=== PATIENT | female | born 1970 | race African-American/Black ===

== ENCOUNTER 2019-03-28 12:55 | Inpatient (IN) | payer MEDICAID ==
[~2019-03-28] VITALS: Ht 157.5 cm; Wt 88.7 kg
[2019-03-28] MEDS ORDERED: METHYLPREDNISOLONE SOD SUCC 125 MG/2 ML VIAL IV STA (13:21)
[2019-03-28] MEDS ORDERED: MORPHINE SULFATE 4 MG/ML CPJ (NOT FOR IM USE) IV STA (13:21)
[2019-03-28] MEDS ORDERED: SODIUM CHLORIDE 0.9% 1,000 ML IV ONE (13:21)
[2019-03-28] MEDS ORDERED: ALBUTEROL (0.083%) 2.5MG/3ML NEB HHN STA (13:21)
[2019-03-28] MEDS ORDERED: ONDANSETRON HCL 4MG/2ML INJ IV STA (13:21)
[2019-03-28] MEDS ORDERED: IPRATROPIUM BROMIDE (0.02%) 0.5MG/2.5ML NEB HHN STA (13:21)
[2019-03-28 14:44] LABS: BASOPHILS % 1.1 % (0.0-2.0); EOSINOPHILS % 4.4 % (0.0-5.0); HEMATOCRIT. 34.3 % (36.0-48.0); HEMOGLOBIN. 11.2 g/dL (12.0-16.0); LYMPHOCYTES % 32.3 % (20.0-50.0); MEAN CORPUSCULAR VOLUME 76.8 fL (81.0-99.0); MEAN PLATELET VOLUME 7.9 fl (7.4-10.4); MONOCYTES % 12.8 % (2.0-8.0); NEUTROPHILS % 49.4 % (40.0-76.0); PLATELET 293 x1000/uL (130-400); RED BLOOD CELL COUNT 4.46 mill/uL (4.2-5.4)
[2019-03-28 14:49] LABS: CHLORIDE 108 mEq/L (98-107)
[2019-03-28 14:57] LABS: PARTIAL THROMBOPLASTIN TIME 26.6 sec (23.4-31.0); PROTHROMBIN TIME 10.6 sec (9.6-11.0)
[2019-03-28 14:59] LABS: HCG SCREEN NEGATIVE
[2019-03-28 16:04] LABS: CLARITY URINE CLEAR (CLEAR); COLOR URINE YELLOW (YELLOW); KETONES URINE NEGATIVE (NEGATIVE); LEUKOCYTE ESTERASE URINE NEGATIVE (NEGATIVE); NITRITE URINE NEGATIVE (NEGATIVE); OCCULT BLOOD URINE 1+ (NEGATIVE); PH URINE 5.5 (4.5-8.0); PROTEIN URINE NEGATIVE (NEGATIVE); SPECIFIC GRAVITY URINE 1.013 (1.005-1.030); UROBILINOGEN URINE 0.2 E.U./dL (0.2-1.0)
[2019-03-28] MEDS ORDERED: METRONIDAZOLE 500 MG PREMIX 100 ML IV ONE (16:30)
[2019-03-28] MEDS ORDERED: MORPHINE SULFATE 4 MG/ML CPJ (NOT FOR IM USE) IV ONE (16:30)
[2019-03-28] MEDS ORDERED: LEVOFLOXACIN 750MG PREMIX 150 ML IV ONE (16:30)
[2019-03-28] MEDS ORDERED: ASPIRIN 325MG EC TABLET PO ONE (16:45)
[2019-03-28] MEDS ORDERED: ACETAMINOPHEN 325MG TABLET PO PRN (18:30)
[2019-03-28] MEDS ORDERED: ONDANSETRON HCL 4MG/2ML INJ IV PRN (18:30)
[2019-03-28 21:22] VITALS: BP 130/64
[2019-03-28] MEDS ORDERED: POTASSIUM CHLORIDE 20MEQ TABLET SR PO NR (22:45)
[2019-03-28] MEDS: KETOROLAC 15MG/ML VIAL IV PRN (23:14)
[2019-03-28] MEDS: GUAIFENESIN-DM 200MG-20MG/10ML UDC PO PRN (23:19)
[2019-03-29 00:51] VITALS: BP 119/74
[2019-03-29] MEDS: IPRATROPIUM/ALBUTEROL 0.5-3(2.5)MG/3ML NEB HHN PRN ×2 (01:22→12:27)
[2019-03-29 04:00] VITALS: BP 130/69
[2019-03-29] MEDS: KETOROLAC 15MG/ML VIAL IV PRN ×2 (06:17→06:24)
[2019-03-29] MEDS: GUAIFENESIN-DM 200MG-20MG/10ML UDC PO PRN (06:26)
[2019-03-29 06:48] LABS: BASOPHILS % 0.4 % (0.0-2.0); HEMATOCRIT. 33.1 % (36.0-48.0); HEMOGLOBIN. 10.7 g/dL (12.0-16.0); LYMPHOCYTES % 14.6 % (20.0-50.0); MEAN CORPUSCULAR VOLUME 77.5 fL (81.0-99.0); MEAN PLATELET VOLUME 8.4 fl (7.4-10.4); MONOCYTES % 7.2 % (2.0-8.0); NEUTROPHILS % 77.8 % (40.0-76.0); PLATELET 293 x1000/uL (130-400); RED BLOOD CELL COUNT 4.27 mill/uL (4.2-5.4); RED CELL DISTRIBUTION WIDTH 18.2 % (11.6-14.6)
[2019-03-29 06:55] VITALS: BP 130/69
[2019-03-29] MEDS ORDERED: S350 PO (07:49)
[2019-03-29] MEDS ORDERED: HYDR12.529 PO (07:49)
[2019-03-29] MEDS ORDERED: ALBU4TAB6 PO (07:49)
[2019-03-29] MEDS ORDERED: AMLO10TA80 PO (07:49)
[2019-03-29] MEDS ORDERED: HYDR-4009 PO (07:49)
[2019-03-29] MEDS ORDERED: LISI10TA5 PO (07:49)
[2019-03-29 07:59] LABS: CHLORIDE 108 mEq/L (98-107)
[2019-03-29 08:00] VITALS: BP 145/74
[2019-03-29] MEDS: GUAIFENESIN 600MG ER TABLET PO SCH ×2 (08:59→22:28)
[2019-03-29] MEDS ORDERED: MORPHINE SULFATE 2 MG/ML CPJ (NOT FOR IM USE) IV PRN (10:15)
[2019-03-29] MEDS ORDERED: HYDROCODONE/ACETAMINOPHEN 10/325MG TABLET PO PRN (10:15)
[2019-03-29] MEDS: HYDROCHLOROTHIAZIDE 12.5MG CAPSULE PO SCH (10:53)
[2019-03-29] MEDS: ASPIRIN 81MG TABLET PO SCH (10:54)
[2019-03-29] MEDS ORDERED: LISINOPRIL 5MG TABLET PO SCH (11:00)
[2019-03-29] MEDS ORDERED: AMLODIPINE 2.5MG TABLET PO SCH (11:00)
[2019-03-29] MEDS: METRONIDAZOLE 500 MG PREMIX 100 ML IV SCH ×2 (11:06→18:05)
[2019-03-29] MEDS: CARISOPRODOL 350 MG TABLET PO PRN ×2 (11:06→22:58)
[2019-03-29 12:00] VITALS: BP 174/81
[2019-03-29] MEDS ORDERED: HYDROMORPHONE HCL/PF 2MG/ML CPJ IV NR (13:00)
[2019-03-29] MEDS ORDERED: CLONIDINE 0.2MG TABLET PO PRN (13:30)
[2019-03-29] MEDS: CLONIDINE 0.1MG TABLET PO PRN (13:37)
[2019-03-29 16:00] VITALS: BP 155/84
[2019-03-29] MEDS: LEVOFLOXACIN 500MG PREMIX 100 ML IV SCH (16:28)
[2019-03-29] MEDS: HYDROMORPHONE HCL/PF 2MG/ML CPJ IV PRN (20:36)
[2019-03-29 22:31] LABS: TOTAL IRON BINDING CAPACITY 419 ug/dL (250-450)
[2019-03-29 22:49] LABS: FOLIC ACID (FOLATE) SERUM 4.8 ng/mL (>5.38)
[2019-03-30] VITALS: BP 146/121
[2019-03-30] MEDS: HYDROMORPHONE HCL/PF 2MG/ML CPJ IV PRN ×5 (00:57→22:21)
[2019-03-30] MEDS: METRONIDAZOLE 500 MG PREMIX 100 ML IV SCH ×3 (02:32→17:44)
[2019-03-30 03:20] LABS: CHLORIDE 106 mEq/L (98-107)
[2019-03-30 03:24] LABS: PARTIAL THROMBOPLASTIN TIME 25.7 sec (23.4-31.0); PROTHROMBIN TIME 10.1 sec (9.6-11.0)
[2019-03-30 03:34] LABS: BASOPHILS % 0.8 % (0.0-2.0); EOSINOPHILS % 3.3 % (0.0-5.0); HEMATOCRIT. 35.2 % (36.0-48.0); HEMOGLOBIN. 11.4 g/dL (12.0-16.0); LYMPHOCYTES % 28.4 % (20.0-50.0); MEAN CORPUSCULAR HEMOGLOBIN 24.9 pg (28.0-32.0); MEAN CORPUSCULAR VOLUME 77.3 fL (81.0-99.0); MEAN PLATELET VOLUME 8.4 fl (7.4-10.4); MONOCYTES % 9.3 % (2.0-8.0); NEUTROPHILS % 58.2 % (40.0-76.0); PLATELET 291 x1000/uL (130-400); RED BLOOD CELL COUNT 4.55 mill/uL (4.2-5.4); RED CELL DISTRIBUTION WIDTH 17.9 % (11.6-14.6)
[2019-03-30 04:00] VITALS: BP 136/86
[2019-03-30 08:00] VITALS: BP 154/76
[2019-03-30] MEDS: GUAIFENESIN 600MG ER TABLET PO SCH ×2 (08:31→21:09)
[2019-03-30] MEDS: ASPIRIN 81MG TABLET PO SCH (08:31)
[2019-03-30] MEDS: HYDROCHLOROTHIAZIDE 12.5MG CAPSULE PO SCH (08:31)
[2019-03-30] MEDS: AMLODIPINE 10MG TABLET PO SCH (08:31)
[2019-03-30] MEDS: LISINOPRIL 40MG TABLET PO SCH (08:32)
[2019-03-30] MEDS ORDERED: SIMETHICONE 40 MG/0.6 ML 30ML ONE (10:15)
[2019-03-30 12:00] VITALS: BP 142/84
[2019-03-30] MEDS ORDERED: BACTERIOSTATIC SODIUM CHLORIDE 0.9% 30ML VIAL IJ ONE (13:53)
[2019-03-30] MEDS: OMEPRAZOLE 20MG CAPSULE EXTENDED RELEASE PO SCH ×2 (15:23→21:09)
[2019-03-30] MEDS: LEVOFLOXACIN 500MG PREMIX 100 ML IV SCH ×2 (15:25→16:20)
[2019-03-30 16:00] VITALS: BP 159/90
[2019-03-30 20:00] VITALS: BP 115/78
[2019-03-30] MEDS: CARISOPRODOL 350 MG TABLET PO PRN (21:15)
[2019-03-31] VITALS: BP 159/86
[2019-03-31] MEDS: IPRATROPIUM/ALBUTEROL 0.5-3(2.5)MG/3ML NEB HHN PRN ×2 (00:10→09:47)
[2019-03-31] MEDS: METRONIDAZOLE 500 MG PREMIX 100 ML IV SCH ×3 (01:36→18:00)
[2019-03-31] MEDS: HYDROMORPHONE HCL/PF 2MG/ML CPJ IV PRN ×3 (02:50→11:27)
[2019-03-31 06:08] LABS: BASOPHILS % 1.5 % (0.0-2.0); HEMATOCRIT. 33.8 % (36.0-48.0); HEMOGLOBIN. 11.1 g/dL (12.0-16.0); LYMPHOCYTES % 41.8 % (20.0-50.0); MEAN CORPUSCULAR HEMOGLOBIN 25.2 pg (28.0-32.0); MEAN CORPUSCULAR VOLUME 77.1 fL (81.0-99.0); MEAN PLATELET VOLUME 8.5 fl (7.4-10.4); MONOCYTES % 10.8 % (2.0-8.0); NEUTROPHILS % 41.9 % (40.0-76.0); PLATELET 302 x1000/uL (130-400); RED BLOOD CELL COUNT 4.38 mill/uL (4.2-5.4); RED CELL DISTRIBUTION WIDTH 17.7 % (11.6-14.6)
[2019-03-31 06:23] LABS: CHLORIDE 104 mEq/L (98-107)
[2019-03-31 06:42] VITALS: BP 175/96
[2019-03-31] MEDS: CLONIDINE 0.1MG TABLET PO PRN (06:57)
[2019-03-31 08:00] VITALS: BP 177/99
[2019-03-31] MEDS: ASPIRIN 81MG TABLET PO SCH (09:24)
[2019-03-31] MEDS: LISINOPRIL 40MG TABLET PO SCH (09:24)
[2019-03-31] MEDS: HYDROCHLOROTHIAZIDE 12.5MG CAPSULE PO SCH (09:25)
[2019-03-31] MEDS: AMLODIPINE 10MG TABLET PO SCH (09:25)
[2019-03-31] MEDS: GUAIFENESIN 600MG ER TABLET PO SCH (09:25)
[2019-03-31] MEDS: CARISOPRODOL 350 MG TABLET PO PRN (09:38)
[2019-03-31] MEDS: OMEPRAZOLE 20MG CAPSULE EXTENDED RELEASE PO SCH (09:57)
[2019-03-31] MEDS: GUAIFENESIN-DM 200MG-20MG/10ML UDC PO PRN (10:34)
[2019-03-31 11:24] VITALS: BP 119/72
[2019-03-31 16:00] VITALS: BP 127/66
[2019-03-31] MEDS: LEVOFLOXACIN 500MG PREMIX 100 ML IV SCH ×2 (17:33→18:33)
[2019-03-31 19:42] VITALS: BP 127/66
== END 2019-03-31 19:50 | disposition home or self-care (01) | DRG 244 ==
LOC: ER 12:55 → EDBEDREQ 15:14 → 7WST 17:53 → EDBEDREQ 18:01 → ENRESERV 19:19
PROVIDERS: ADMIT Internal Medicine; ATTEND Internal Medicine
PROC: 0DB68ZX Excision of Stomach, Via Natural or Artificial Opening Endoscopic, Diagnostic (ICD-10-PCS; principal; 2019-03-30)
DX: K57.32 Diverticulitis of large intestine without perforation or abscess without bleeding (principal); E44.1 Mild protein-calorie malnutrition; E87.8 Other disorders of electrolyte and fluid balance, not elsewhere classified; R13.10 Dysphagia, unspecified; M48.02 Spinal stenosis, cervical region; K29.60 Other gastritis without bleeding; J06.9 Acute upper respiratory infection, unspecified; I10 Essential (primary) hypertension; E87.6 Hypokalemia; D50.9 Iron deficiency anemia, unspecified; E66.9 Obesity, unspecified; M47.812 Spondylosis without myelopathy or radiculopathy, cervical region; J45.909 Unspecified asthma, uncomplicated; Z76.5 Malingerer [conscious simulation]; Z90.49 Acquired absence of other specified parts of digestive tract; Z68.35 Body mass index [BMI] 35.0-35.9, adult; Z71.3 Dietary counseling and surveillance
CPT/HCPCS: 36415; 71045; 72141; 74176; 80048; 82607; 82728; 82746; 83540; 83550; 83880; 84484; 84703; 88305; 88312; 88313; 93005; 94640; 94644; 97166; 99285; C1893; J1170; J1885; J1956; J2270; J2405; J2930; J3490; J7030; J7040; J7611; J7620

== ENCOUNTER 2019-10-08 06:25 | Inpatient (IN) | payer MEDICAID ==
[~2019-10-08] VITALS: Ht 157.5 cm; Wt 81.6 kg
[~2019-10-08 06:25] MED LIST: ALBU4TAB6 PO; AMLO10TA80 PO; CARI350T28 PO; HYDR-4009 PO; HYDR12.529 PO; LISI10TA5 PO
[2019-10-08] MEDS ORDERED: MORPHINE SULFATE 4 MG/ML CPJ (NOT FOR IM USE) IV STA (06:50)
[2019-10-08] MEDS ORDERED: ONDANSETRON HCL 4MG/2ML INJ IV STA (06:50)
[2019-10-08 07:44] LABS: CHLORIDE 108 mEq/L (98-107); PROTHROMBIN TIME 10.4 sec (9.6-11.0)
[2019-10-08 07:46] LABS: BASOPHILS % 0.6 % (0.0-2.0); EOSINOPHILS % 0.8 % (0.0-5.0); HEMOGLOBIN. 10.5 g/dL (12.0-16.0); LYMPHOCYTES % 24.6 % (20.0-50.0); MEAN CORPUSCULAR HEMOGLOBIN 22.9 pg (28.0-32.0); MEAN CORPUSCULAR VOLUME 69.6 fL (81.0-99.0); MONOCYTES % 3.9 % (2.0-8.0); NEUTROPHILS % 70.1 % (40.0-76.0); PLATELET 314 x1000/uL (130-400); RED CELL DISTRIBUTION WIDTH 19.2 % (11.6-14.6)
[2019-10-08 07:55] LABS: HCG SCREEN NEGATIVE
[2019-10-08 08:52] LABS: PLATELET ESTIMATE NORMAL
[2019-10-08] MEDS ORDERED: MORPHINE SULFATE 4 MG/ML CPJ (NOT FOR IM USE) IV ONE ×2 (09:45→12:30)
[2019-10-08 10:15] LABS: CLARITY URINE CLOUDY (CLEAR); COLOR URINE YELLOW (YELLOW); KETONES URINE NEGATIVE (NEGATIVE); LEUKOCYTE ESTERASE URINE 1+ (NEGATIVE); NITRITE URINE NEGATIVE (NEGATIVE); OCCULT BLOOD URINE NEGATIVE (NEGATIVE); PH URINE 7.5 (4.5-8.0); PROTEIN URINE NEGATIVE (NEGATIVE); SPECIFIC GRAVITY URINE 1.013 (1.005-1.030)
[2019-10-08] MEDS ORDERED: METRONIDAZOLE 500 MG PREMIX 100 ML IV ONE (10:30)
[2019-10-08] MEDS ORDERED: LEVOFLOXACIN 750MG PREMIX 150 ML IV ONE (10:30)
[2019-10-08] MEDS ORDERED: DIPHENHYDRAMINE 50MG/ML VIAL IV ONE (12:30)
[2019-10-08] MEDS ORDERED: ACETAMINOPHEN 325MG TABLET PO PRN (14:15)
[2019-10-08] MEDS ORDERED: ONDANSETRON HCL 4MG/2ML INJ IV PRN (14:15)
[2019-10-08] MEDS ORDERED: KETOROLAC 30MG/ML VIAL IV PRN (16:39)
[2019-10-08] MEDS ORDERED: LOSARTAN POTASSIUM 50 MG TABLET PO NR (17:30)
[2019-10-08] MEDS: OMEPRAZOLE 20MG CAPSULE EXTENDED RELEASE PO SCH (18:11)
[2019-10-08] MEDS ORDERED: METRONIDAZOLE 500 MG PREMIX 100 ML IV NR (18:30)
[2019-10-08] MEDS: MORPHINE SULFATE 2 MG/ML CPJ (NOT FOR IM USE) IV PRN (21:16)
[2019-10-08 22:35] VITALS: BP 164/87
[2019-10-09] MEDS: METRONIDAZOLE 500 MG PREMIX 100 ML IV SCH ×3 (01:22→22:14)
[2019-10-09] MEDS: MORPHINE SULFATE 2 MG/ML CPJ (NOT FOR IM USE) IV PRN ×3 (01:23→11:05)
[2019-10-09] MEDS: OMEPRAZOLE 20MG CAPSULE EXTENDED RELEASE PO SCH (06:42)
[2019-10-09 07:35] LABS: HEMATOCRIT. 30.7 % (36.0-48.0); HEMOGLOBIN. 9.9 g/dL (12.0-16.0); MEAN CORPUSCULAR HEMOGLOBIN 22.5 pg (28.0-32.0); MEAN CORPUSCULAR VOLUME 69.6 fL (81.0-99.0); MEAN PLATELET VOLUME 8.2 fl (7.4-10.4); PLATELET 267 x1000/uL (130-400); RED BLOOD CELL COUNT 4.41 mill/uL (4.2-5.4); RED CELL DISTRIBUTION WIDTH 18.5 % (11.6-14.6)
[2019-10-09 08:00] VITALS: BP 137/73
[2019-10-09 08:01] LABS: CHLORIDE 107 mEq/L (98-107)
[2019-10-09 08:04] LABS: FOLIC ACID (FOLATE) SERUM 4.7 ng/mL (>5.38)
[2019-10-09 08:09] LABS: TOTAL IRON BINDING CAPACITY 431 ug/dL (250-450)
[2019-10-09] MEDS ORDERED: LOSARTAN POTASSIUM 50 MG TABLET PO SCH ×2 (09:00→13:30)
[2019-10-09] MEDS: FERROUS SULFATE 325MG TABLET PO SCH ×3 (09:20→18:23)
[2019-10-09 12:00] VITALS: BP_SYST 151; BP_SYST 158; BP_DIAS 87; BP_DIAS 96
[2019-10-09 13:14] LABS: PLATELET ESTIMATE NORMAL
[2019-10-09] MEDS ORDERED: LEVOFLOXACIN 500MG PREMIX 100 ML IV SCH (14:00)
[2019-10-09] MEDS ORDERED: FLUCONAZOLE 150MG TABLET PO NR (14:00)
[2019-10-09] MEDS: HYDROMORPHONE HCL/PF 2MG/ML CPJ IV PRN ×2 (15:35→22:04)
[2019-10-09] MEDS: DIPHENHYDRAMINE 25MG CAPSULE PO PRN ×2 (15:35→22:03)
[2019-10-09 16:00] VITALS: BP 142/76
[2019-10-09 20:00] VITALS: BP 128/71
[2019-10-09] MEDS: LOSARTAN POTASSIUM 50 MG TABLET PO SCH (21:00)
[2019-10-09] MEDS ORDERED: DOCUSATE SODIUM 250MG CAPSULE PO PRN (23:00)
[2019-10-10] VITALS: BP 157/79
[2019-10-10 04:00] VITALS: BP 140/79
[2019-10-10] MEDS: METRONIDAZOLE 500 MG PREMIX 100 ML IV SCH ×3 (05:21→22:58)
[2019-10-10] MEDS: DIPHENHYDRAMINE 25MG CAPSULE PO PRN ×2 (05:21→12:32)
[2019-10-10] MEDS: HYDROMORPHONE HCL/PF 2MG/ML CPJ IV PRN (05:47)
[2019-10-10 07:14] LABS: HEMATOCRIT. 30.6 % (36.0-48.0); HEMOGLOBIN. 9.9 g/dL (12.0-16.0); MEAN CORPUSCULAR HEMOGLOBIN 22.5 pg (28.0-32.0); MEAN CORPUSCULAR VOLUME 69.7 fL (81.0-99.0); MEAN PLATELET VOLUME 8.9 fl (7.4-10.4); PLATELET 284 x1000/uL (130-400); RED BLOOD CELL COUNT 4.38 mill/uL (4.2-5.4); RED CELL DISTRIBUTION WIDTH 19.1 % (11.6-14.6)
[2019-10-10] MEDS: OMEPRAZOLE 20MG CAPSULE EXTENDED RELEASE PO SCH (07:20)
[2019-10-10 07:32] LABS: CHLORIDE 107 mEq/L (98-107)
[2019-10-10 08:00] VITALS: BP 137/78
[2019-10-10] MEDS: LOSARTAN POTASSIUM 50 MG TABLET PO SCH ×2 (09:33→22:58)
[2019-10-10] MEDS: FERROUS SULFATE 325MG TABLET PO SCH ×2 (09:33→12:32)
[2019-10-10 09:35] LABS: ATYPICAL LYMPHOCYTES 1; PLATELET ESTIMATE NORMAL
[2019-10-10 12:00] VITALS: BP 187/109
[2019-10-10] MEDS: HYDROCODONE/ACETAMINOPHEN 5/325MG TABLET PO PRN (14:33)
[2019-10-10 16:00] VITALS: BP 144/78
[2019-10-10] MEDS: HYDROMORPHONE HCL/PF 2MG/ML CPJ IM PRN ×2 (17:22→23:24)
[2019-10-10] MEDS: LEVOFLOXACIN 500MG PREMIX 100 ML IV SCH (17:23)
[2019-10-10 20:00] VITALS: BP 173/96
[2019-10-11] VITALS: BP 145/79
[2019-10-11 04:00] VITALS: BP 151/76
[2019-10-11] MEDS: ALBUTEROL (0.083%) 2.5MG/3ML NEB HHN SCH ×4 (04:38→17:25)
[2019-10-11] MEDS: OMEPRAZOLE 20MG CAPSULE EXTENDED RELEASE PO SCH (05:47)
[2019-10-11] MEDS: METRONIDAZOLE 500 MG PREMIX 100 ML IV SCH ×2 (05:47→13:30)
[2019-10-11] MEDS: HYDROMORPHONE HCL/PF 2MG/ML CPJ IM PRN (05:48)
[2019-10-11 06:51] LABS: HEMATOCRIT. 34.2 % (36.0-48.0); HEMOGLOBIN. 10.6 g/dL (12.0-16.0); MEAN CORPUSCULAR HEMOGLOBIN 22.1 pg (28.0-32.0); MEAN CORPUSCULAR VOLUME 70.9 fL (81.0-99.0); MEAN PLATELET VOLUME 8.9 fl (7.4-10.4); PLATELET 304 x1000/uL (130-400); RED BLOOD CELL COUNT 4.83 mill/uL (4.2-5.4); RED CELL DISTRIBUTION WIDTH 18.7 % (11.6-14.6)
[2019-10-11 07:10] LABS: CHLORIDE 106 mEq/L (98-107)
[2019-10-11 08:00] VITALS: BP 126/72
[2019-10-11] MEDS ORDERED: AMLODIPINE 5MG TABLET PO SCH (09:00)
[2019-10-11] MEDS: LOSARTAN POTASSIUM 50 MG TABLET PO SCH (09:11)
[2019-10-11] MEDS: FERROUS SULFATE 325MG TABLET PO SCH ×3 (09:11→18:40)
[2019-10-11] MEDS ORDERED: FOLIC ACID 1MG TABLET PO SCH (09:15)
[2019-10-11 09:40] LABS: PLATELET ESTIMATE NORMAL
[2019-10-11] MEDS ORDERED: DOCU250C14 MT (10:03)
[2019-10-11] MEDS ORDERED: FERR325T6 MT (10:03)
[2019-10-11] MEDS ORDERED: FOLI-43 MT (10:03)
[2019-10-11] MEDS: HYDROCODONE/ACETAMINOPHEN 5/325MG TABLET PO PRN ×2 (11:04→16:13)
[2019-10-11] MEDS: LEVOFLOXACIN 500MG PREMIX 100 ML IV SCH (11:19)
[2019-10-11 12:00] VITALS: BP 146/79
[2019-10-11] MEDS ORDERED: SORBITOL 70% SOLN 30ML PO SCH (14:00)
[2019-10-11] MEDS ORDERED: NA PHOS,M-B/NA PHOS,DI-BA ENEMA 118ML PR SCH (14:00)
[2019-10-11 16:00] VITALS: BP 154/84
[2019-10-11 19:00] VITALS: BP 154/84
[2019-10-12] MEDS ORDERED: METRONIDAZOLE 500MG TABLET PO SCH (06:00)
[2019-10-12] MEDS ORDERED: LEVOFLOXACIN 500MG TABLET PO SCH (11:00)
== END 2019-10-11 19:10 | disposition home or self-care (01) | DRG 720 ==
LOC: ER 06:25 → 6EST 12:43 → EDBEDREQSVC 17:56 → ENRESERV 18:01 → EDBEDREQ 18:41
PROVIDERS: ADMIT Internal Medicine; ATTEND Internal Medicine
DX: A41.9 Sepsis, unspecified organism (principal); E87.8 Other disorders of electrolyte and fluid balance, not elsewhere classified; E44.1 Mild protein-calorie malnutrition; K57.32 Diverticulitis of large intestine without perforation or abscess without bleeding; K83.8 Other specified diseases of biliary tract; D25.9 Leiomyoma of uterus, unspecified; D50.9 Iron deficiency anemia, unspecified; E66.9 Obesity, unspecified; I10 Essential (primary) hypertension; J45.909 Unspecified asthma, uncomplicated; N39.0 Urinary tract infection, site not specified; Z76.5 Malingerer [conscious simulation]; Z90.49 Acquired absence of other specified parts of digestive tract; Z79.899 Other long term (current) drug therapy; Z68.32 Body mass index [BMI] 32.0-32.9, adult
CPT/HCPCS: 36415; 74176; 80048; 80053; 81003; 82607; 82728; 82746; 83540; 83550; 84703; 85025; 94640; 96365; 99285; C1893; J1170; J1200; J1956; J2270; J2405; J3490; J7040; J7611; Q0163

== ENCOUNTER 2020-05-06 09:49 | Inpatient (IN) | payer MEDICAID ==
[~2020-05-06] VITALS: Ht 167.6 cm; Wt 89.8 kg
[~2020-05-06 09:49] MED LIST changes: +DOCU250C14 MT; +FERR325T6 MT; +FOLI-43 MT
[2020-05-06] MEDS ORDERED: ONDANSETRON HCL 4MG/2ML INJ IV STA ×2 (10:07→12:29)
[2020-05-06] MEDS ORDERED: SODIUM CHLORIDE 0.9% 1,000 ML IV ONE (10:07)
[2020-05-06] MEDS ORDERED: KETOROLAC 30MG/ML VIAL IV STA (10:07)
[2020-05-06 10:35] LABS: BASOPHILS % 1.3 % (0.0-2.0); EOSINOPHILS % 2.7 % (0.0-5.0); HEMOGLOBIN. 11.8 g/dL (12.0-16.0); LYMPHOCYTES % 36.5 % (20.0-50.0); MEAN CORPUSCULAR HEMOGLOBIN 24.4 pg (28.0-32.0); MEAN CORPUSCULAR VOLUME 74.5 fL (81.0-99.0); MONOCYTES % 12.3 % (2.0-8.0); NEUTROPHILS % 47.2 % (40.0-76.0); PLATELET 308 x1000/uL (130-400); RED BLOOD CELL COUNT 4.83 mill/uL (4.2-5.4)
[2020-05-06 10:37] LABS: CHLORIDE 105 mEq/L (98-107)
[2020-05-06 10:41] LABS: PROTHROMBIN TIME 10.5 sec (9.6-11.0)
[2020-05-06 10:44] LABS: CLARITY URINE CLEAR (CLEAR); COLOR URINE YELLOW (YELLOW); KETONES URINE NEGATIVE (NEGATIVE); LEUKOCYTE ESTERASE URINE NEGATIVE (NEGATIVE); NITRITE URINE NEGATIVE (NEGATIVE); OCCULT BLOOD URINE NEGATIVE (NEGATIVE); PROTEIN URINE NEGATIVE (NEGATIVE); SPECIFIC GRAVITY URINE 1.015 (1.005-1.030)
[2020-05-06] MEDS ORDERED: MORPHINE SULFATE 4 MG/ML CPJ (NOT FOR IM USE) IV STA (12:29)
[2020-05-06] MEDS ORDERED: CEFTRIAXONE 1 G PREMIX 50 ML IV ONE (12:30)
[2020-05-06] MEDS ORDERED: METRONIDAZOLE 500 MG PREMIX 100 ML IV ONE (12:30)
[2020-05-06] MEDS ORDERED: ACETAMINOPHEN 325MG TABLET PO PRN (15:15)
[2020-05-06] MEDS ORDERED: DIPHENHYDRAMINE 50MG/ML VIAL IV PRN (15:15)
[2020-05-06] MEDS ORDERED: CLONIDINE 0.1MG TABLET PO PRN (15:15)
[2020-05-06] MEDS: SODIUM CHLORIDE 0.9% 1,000 ML IV SCH (15:40)
[2020-05-06] MEDS: MORPHINE SULFATE 2 MG/ML CPJ (NOT FOR IM USE) IV PRN ×2 (16:45→20:48)
[2020-05-06] MEDS: ONDANSETRON HCL 4MG/2ML INJ IV PRN ×2 (20:41→20:48)
[2020-05-06] MEDS ORDERED: METRONIDAZOLE 500 MG PREMIX 100 ML IV SCH (21:00)
[2020-05-06 21:30] VITALS: BP 148/74
[2020-05-07] VITALS (8 sets, daily range): BP systolic 105–179; BP diastolic 58–94
[2020-05-07] MEDS: SODIUM CHLORIDE 0.9% 1,000 ML IV SCH ×2 (01:50→13:16)
[2020-05-07] MEDS: MORPHINE SULFATE 2 MG/ML CPJ (NOT FOR IM USE) IV PRN ×2 (01:51→05:58)
[2020-05-07] MEDS: METRONIDAZOLE 500 MG PREMIX 100 ML IV SCH ×3 (05:45→21:15)
[2020-05-07 07:06] LABS: BASOPHILS % 1.3 % (0.0-2.0); CHLORIDE 107 mEq/L (98-107); EOSINOPHILS % 5.2 % (0.0-5.0); HEMATOCRIT. 33.1 % (36.0-48.0); HEMOGLOBIN. 10.7 g/dL (12.0-16.0); LYMPHOCYTES % 52.7 % (20.0-50.0); MEAN CORPUSCULAR HEMOGLOBIN 24.2 pg (28.0-32.0); MEAN CORPUSCULAR VOLUME 74.9 fL (81.0-99.0); MEAN PLATELET VOLUME 8.1 fl (7.4-10.4); MONOCYTES % 12.5 % (2.0-8.0); NEUTROPHILS % 28.3 % (40.0-76.0); PLATELET 267 x1000/uL (130-400); RED BLOOD CELL COUNT 4.41 mill/uL (4.2-5.4); RED CELL DISTRIBUTION WIDTH 19.7 % (11.6-14.6)
[2020-05-07 07:17] LABS: HDL CHOLESTEROL 60 mg/dL (40-59)
[2020-05-07 07:20] LABS: LDL CHOLESTEROL 52 mg/dL (5-100)
[2020-05-07] MEDS: HYDROMORPHONE HCL/PF 2MG/ML CPJ IV PRN ×3 (09:47→23:31)
[2020-05-07] MEDS: LISINOPRIL 10MG TABLET PO SCH (12:46)
[2020-05-07] MEDS: FOLIC ACID 1MG TABLET PO SCH (12:46)
[2020-05-07] MEDS: HYDROCHLOROTHIAZIDE 12.5MG CAPSULE PO SCH (12:46)
[2020-05-07] MEDS: CEFTRIAXONE 1,000 MG in DEXTROSE 5% WATER 50 ML IV SCH (12:46)
[2020-05-07] MEDS: AMLODIPINE 10MG TABLET PO SCH (12:46)
[2020-05-07] MEDS ORDERED: CEFTRIAXONE 1,000 MG in DEXTROSE 5% WATER 50 ML IV SCH (13:00)
[2020-05-07] MEDS: ONDANSETRON HCL 4MG/2ML INJ IV PRN (23:41)
[2020-05-08] VITALS: BP 125/72
[2020-05-08 04:00] VITALS: BP 111/64
[2020-05-08] MEDS: METRONIDAZOLE 500 MG PREMIX 100 ML IV SCH ×3 (05:16→21:21)
[2020-05-08 08:00] VITALS: BP 134/87
[2020-05-08] MEDS: HYDROCHLOROTHIAZIDE 12.5MG CAPSULE PO SCH (08:57)
[2020-05-08] MEDS: FOLIC ACID 1MG TABLET PO SCH (08:58)
[2020-05-08] MEDS: AMLODIPINE 10MG TABLET PO SCH (08:58)
[2020-05-08] MEDS: LISINOPRIL 10MG TABLET PO SCH (08:58)
[2020-05-08] MEDS: HYDROMORPHONE HCL/PF 2MG/ML CPJ IV PRN ×3 (08:59→21:51)
[2020-05-08 12:00] VITALS: BP 160/58
[2020-05-08] MEDS: SODIUM CHLORIDE 0.9% 1,000 ML IV SCH (12:15)
[2020-05-08] MEDS: CEFTRIAXONE 1,000 MG in DEXTROSE 5% WATER 50 ML IV SCH (13:04)
[2020-05-08 16:00] VITALS: BP 117/66
[2020-05-08 20:00] VITALS: BP 128/78
[2020-05-09] VITALS: BP 116/59
[2020-05-09] MEDS: MORPHINE SULFATE 2 MG/ML CPJ (NOT FOR IM USE) IV PRN ×2 (01:18→08:53)
[2020-05-09 04:00] VITALS: BP 112/61
[2020-05-09] MEDS: HYDROMORPHONE HCL/PF 2MG/ML CPJ IV PRN ×3 (05:45→21:54)
[2020-05-09] MEDS: METRONIDAZOLE 500 MG PREMIX 100 ML IV SCH ×3 (06:04→21:48)
[2020-05-09 07:22] LABS: CHLORIDE 106 mEq/L (98-107)
[2020-05-09 07:24] LABS: BASOPHILS % 1.2 % (0.0-2.0); EOSINOPHILS % 3.6 % (0.0-5.0); HEMATOCRIT. 35.4 % (36.0-48.0); HEMOGLOBIN. 11.5 g/dL (12.0-16.0); LYMPHOCYTES % 45.7 % (20.0-50.0); MEAN CORPUSCULAR VOLUME 73.9 fL (81.0-99.0); MONOCYTES % 12.1 % (2.0-8.0); NEUTROPHILS % 37.4 % (40.0-76.0); PLATELET 309 x1000/uL (130-400); RED BLOOD CELL COUNT 4.79 mill/uL (4.2-5.4); RED CELL DISTRIBUTION WIDTH 19.5 % (11.6-14.6)
[2020-05-09 08:00] VITALS: BP 133/85
[2020-05-09] MEDS: LISINOPRIL 10MG TABLET PO SCH (08:52)
[2020-05-09] MEDS: HYDROCHLOROTHIAZIDE 12.5MG CAPSULE PO SCH (08:52)
[2020-05-09] MEDS: FOLIC ACID 1MG TABLET PO SCH (08:52)
[2020-05-09] MEDS: AMLODIPINE 10MG TABLET PO SCH (08:52)
[2020-05-09] MEDS: SODIUM CHLORIDE 0.9% 1,000 ML IV SCH (09:54)
[2020-05-09 12:00] VITALS: BP 138/78
[2020-05-09] MEDS: CEFTRIAXONE 1,000 MG in DEXTROSE 5% WATER 50 ML IV SCH (13:05)
[2020-05-09 16:00] VITALS: BP 137/80
[2020-05-09 20:00] VITALS: BP 125/88
[2020-05-10] VITALS: BP 125/80
[2020-05-10] MEDS: MORPHINE SULFATE 2 MG/ML CPJ (NOT FOR IM USE) IV PRN ×2 (02:55→12:12)
[2020-05-10 04:00] VITALS: BP 126/54
[2020-05-10] MEDS: METRONIDAZOLE 500 MG PREMIX 100 ML IV SCH ×2 (05:23→13:50)
[2020-05-10 08:00] VITALS: BP 110/69
[2020-05-10] MEDS: FOLIC ACID 1MG TABLET PO SCH (08:31)
[2020-05-10] MEDS: LISINOPRIL 10MG TABLET PO SCH (08:31)
[2020-05-10] MEDS: AMLODIPINE 10MG TABLET PO SCH (08:32)
[2020-05-10] MEDS: HYDROCHLOROTHIAZIDE 12.5MG CAPSULE PO SCH (08:32)
[2020-05-10] MEDS: HYDROMORPHONE HCL/PF 2MG/ML CPJ IV PRN ×2 (08:33→16:57)
[2020-05-10 11:54] VITALS: BP 125/86
[2020-05-10] MEDS: CEFTRIAXONE 1,000 MG in DEXTROSE 5% WATER 50 ML IV SCH (12:11)
[2020-05-10 16:00] VITALS: BP 148/98
[2020-05-10] MEDS: METRONIDAZOLE 500MG TABLET PO SCH (21:49)
[2020-05-10] MEDS: ONDANSETRON HCL 4MG/2ML INJ IV PRN (22:17)
[2020-05-11] MEDS: MORPHINE SULFATE 2 MG/ML CPJ (NOT FOR IM USE) IV PRN ×2 (03:14→11:59)
[2020-05-11 04:00] VITALS: BP 115/56
[2020-05-11] MEDS: METRONIDAZOLE 500MG TABLET PO SCH ×2 (05:44→13:00)
[2020-05-11] MEDS: HYDROMORPHONE HCL/PF 2MG/ML CPJ IV PRN (06:27)
[2020-05-11 08:00] VITALS: BP 115/64
[2020-05-11] MEDS: AMLODIPINE 10MG TABLET PO SCH (08:24)
[2020-05-11] MEDS: LISINOPRIL 10MG TABLET PO SCH (08:24)
[2020-05-11] MEDS: FOLIC ACID 1MG TABLET PO SCH (08:24)
[2020-05-11] MEDS: HYDROCHLOROTHIAZIDE 12.5MG CAPSULE PO SCH (08:24)
[2020-05-11] MEDS ORDERED: DOCUSATE SODIUM 250MG CAPSULE PO SCH (10:45)
[2020-05-11] MEDS ORDERED: METR-167 PO (11:59)
[2020-05-11 12:00] VITALS: BP 122/84
[2020-05-11] MEDS: CEFTRIAXONE 1,000 MG in DEXTROSE 5% WATER 50 ML IV SCH (12:00)
[2020-05-11 16:00] VITALS: BP 124/71
[2020-05-11 16:15] VITALS: BP 124/71
== END 2020-05-11 16:45 | disposition home or self-care (01) | DRG 244 ==
LOC: ER 09:49 → 6EST 14:00 → EDBEDREQ 14:03 → EDBEDREQTM 19:26 → ENRESERV 20:36
PROVIDERS: ADMIT Internal Medicine; ATTEND Internal Medicine
DX: K57.32 Diverticulitis of large intestine without perforation or abscess without bleeding (principal); D25.9 Leiomyoma of uterus, unspecified; D50.9 Iron deficiency anemia, unspecified; I10 Essential (primary) hypertension; J45.909 Unspecified asthma, uncomplicated; E83.51 Hypocalcemia; R13.10 Dysphagia, unspecified; Z90.49 Acquired absence of other specified parts of digestive tract; Z79.899 Other long term (current) drug therapy
CPT/HCPCS: 36415; 72110; 72148; 74176; 80048; 80053; 80061; 81003; 82270; 85025; 93005; 93970; 99285; J0696; J1170; J1885; J2270; J2405; J3490; J7030; J7060

== ENCOUNTER 2020-05-12 03:39 | Inpatient (IN) | payer MEDICAID ==
[~2020-05-12] VITALS: Ht 157.5 cm; Wt 83.5 kg
[~2020-05-12 03:39] MED LIST changes: +METR-167 PO
[2020-05-12] MEDS ORDERED: SODIUM CHLORIDE 0.9% 1,000 ML IV ONE (04:02)
[2020-05-12] MEDS ORDERED: ONDANSETRON HCL 4MG/2ML INJ IV STA (04:02)
[2020-05-12] MEDS ORDERED: KETOROLAC 30MG/ML VIAL IV STA (04:06)
[2020-05-12 04:18] LABS: BASOPHILS % 1.4 % (0.0-2.0); EOSINOPHILS % 2.2 % (0.0-5.0); HEMATOCRIT. 37.4 % (36.0-48.0); HEMOGLOBIN. 12.3 g/dL (12.0-16.0); LYMPHOCYTES % 35.4 % (20.0-50.0); MEAN CORPUSCULAR HEMOGLOBIN 24.3 pg (28.0-32.0); MEAN CORPUSCULAR VOLUME 73.8 fL (81.0-99.0); MEAN PLATELET VOLUME 7.4 fl (7.4-10.4); MONOCYTES % 13.7 % (2.0-8.0); NEUTROPHILS % 47.3 % (40.0-76.0); PLATELET 318 x1000/uL (130-400); RED BLOOD CELL COUNT 5.07 mill/uL (4.2-5.4); RED CELL DISTRIBUTION WIDTH 19.2 % (11.6-14.6)
[2020-05-12 04:24] LABS: CHLORIDE 104 mEq/L (98-107)
[2020-05-12 04:28] LABS: INR 1.1; PROTHROMBIN TIME 11.9 sec (9.6-11.0)
[2020-05-12 04:37] LABS: ETHANOL BLOOD 16 mg/dL
[2020-05-12 05:28] LABS: CLARITY URINE CLEAR (CLEAR); COLOR URINE YELLOW (YELLOW); KETONES URINE NEGATIVE (NEGATIVE); LEUKOCYTE ESTERASE URINE NEGATIVE (NEGATIVE); NITRITE URINE NEGATIVE (NEGATIVE); OCCULT BLOOD URINE NEGATIVE (NEGATIVE); PH URINE 6.5 (4.5-8.0); PROTEIN URINE NEGATIVE (NEGATIVE); SPECIFIC GRAVITY URINE 1.014 (1.005-1.030); UROBILINOGEN URINE 0.2 E.U./dL (0.2-1.0)
[2020-05-12] MEDS ORDERED: MORPHINE SULFATE 4 MG/ML CPJ (NOT FOR IM USE) IV ONE (06:15)
[2020-05-12 08:00] VITALS: BP 151/80
[2020-05-12 09:45] VITALS: BP 151/80
[2020-05-12 12:00] VITALS: BP 141/67
[2020-05-12] MEDS ORDERED: CARISOPRODOL 350 MG TABLET PO PRN (12:15)
[2020-05-12] MEDS ORDERED: DOCUSATE SODIUM 250MG CAPSULE PO PRN (12:15)
[2020-05-12] MEDS ORDERED: AMLODIPINE 10MG TABLET PO SCH (12:15)
[2020-05-12] MEDS ORDERED: HYDROCODONE/ACETAMINOPHEN 10/325MG TABLET PO PRN (12:15)
[2020-05-12] MEDS ORDERED: SODIUM CHLORIDE 0.9% 1,000 ML IV SCH (12:20)
[2020-05-12] MEDS ORDERED: ENOXAPARIN 40MG/0.4ML SYR SUBCUT SCH (12:30)
[2020-05-12] MEDS ORDERED: ONDANSETRON HCL 4MG/2ML INJ IV PRN (12:30)
[2020-05-12] MEDS ORDERED: ACETAMINOPHEN 325MG TABLET PO PRN (12:30)
[2020-05-12] MEDS: METRONIDAZOLE 500MG TABLET PO SCH ×2 (14:00→22:10)
[2020-05-12 16:00] VITALS: BP 126/78
[2020-05-12] MEDS ORDERED: LIDOCAINE 5% PATCH TOP SCH (19:45)
[2020-05-12 20:00] VITALS: BP 145/86
[2020-05-13] VITALS: BP 163/84
[2020-05-13] MEDS ORDERED: GABAPENTIN 300MG CAPSULE PO SCH (06:00)
[2020-05-13] MEDS ORDERED: LISINOPRIL 10MG TABLET PO SCH (09:00)
[2020-05-13] MEDS ORDERED: HYDROCHLOROTHIAZIDE 12.5MG CAPSULE PO SCH (09:00)
[2020-05-13] MEDS ORDERED: FOLIC ACID 1MG TABLET PO SCH (09:00)
== END 2020-05-13 03:30 | disposition left against medical advice (07) | DRG 347 ==
LOC: ER 04:02 → 6EST 05:13 → EDBEDREQTM 05:46 → EDBEDREQ 05:46 → EDBEDREQSVC 05:46 → ENRESERV 07:40 → ER 08:52
PROVIDERS: ADMIT Internal Medicine; ATTEND Internal Medicine
DX: M47.816 Spondylosis without myelopathy or radiculopathy, lumbar region (principal); M48.061 Spinal stenosis, lumbar region without neurogenic claudication; E78.5 Hyperlipidemia, unspecified; F10.229 Alcohol dependence with intoxication, unspecified; I10 Essential (primary) hypertension; J45.909 Unspecified asthma, uncomplicated; K57.92 Diverticulitis of intestine, part unspecified, without perforation or abscess without bleeding; Z53.29 Procedure and treatment not carried out because of patient's decision for other reasons; Z93.3 Colostomy status; Z88.0 Allergy status to penicillin; Z71.41 Alcohol abuse counseling and surveillance of alcoholic
CPT/HCPCS: 36415; 72141; 72146; 80053; 80320; 81003; 85025; 93005; 93970; 99285; J1650; J1885; J2270; J2405; J7030; G0480

== ENCOUNTER 2021-06-01 12:15 | Emergency (ER) | payer MEDICAID ==
[~2021-06-01] VITALS: Ht 165.1 cm; Wt 103.0 kg
[~2021-06-01 12:15] MED LIST changes: +HYDR12.54 PO; +LISI10TA26 PO; -LISI10TA5 PO
[2021-06-01] MEDS ORDERED: ONDANSETRON 4MG ODT PO ONE (14:15)
[2021-06-01 14:51] LABS: HEMATOCRIT. 36.7 % (36.0-48.0); HEMOGLOBIN. 11.7 g/dL (12.0-16.0); MEAN CORPUSCULAR HEMOGLOBIN 20.9 pg (28.0-32.0); MEAN CORPUSCULAR VOLUME 65.8 fL (81.0-99.0); MEAN PLATELET VOLUME 9.1 fl (7.4-10.4); PLATELET 327 x1000/uL (130-400); RED BLOOD CELL COUNT 5.58 mill/uL (4.2-5.4); RED CELL DISTRIBUTION WIDTH 20.3 % (11.6-14.6)
[2021-06-01 14:56] LABS: CHLORIDE 108 mEq/L (98-107)
[2021-06-01 14:58] LABS: PROTHROMBIN TIME 10.7 sec (9.6-11.0)
[2021-06-01 15:33] LABS: PLATELET ESTIMATE NORMAL
[2021-06-01 15:50] LABS: CLARITY URINE CLEAR (CLEAR); COLOR URINE YELLOW (YELLOW); KETONES URINE NEGATIVE (NEGATIVE); LEUKOCYTE ESTERASE URINE NEGATIVE (NEGATIVE); NITRITE URINE NEGATIVE (NEGATIVE); OCCULT BLOOD URINE TRACE (NEGATIVE); PH URINE 5.5 (4.5-8.0); PROTEIN URINE NEGATIVE (NEGATIVE); SPECIFIC GRAVITY URINE 1.017 (1.005-1.030)
[2021-06-01] MEDS ORDERED: ACETAMINOPHEN 325MG TABLET PO ONE (18:00)
[2021-06-01 19:00] VITALS: BP 134/65
[2021-06-01] MEDS ORDERED: IOHEXOL-300 100 ML BOTTLE ONE (23:06)
== END 2021-06-01 17:10 | disposition short-term general hospital (02) ==
LOC: ER 12:49
DX: R07.89 Other chest pain (principal); R10.32 Left lower quadrant pain; R19.7 Diarrhea, unspecified; J45.909 Unspecified asthma, uncomplicated; I10 Essential (primary) hypertension; Z79.899 Other long term (current) drug therapy
CPT/HCPCS: 36415; 71045; 74177; 80053; 81003; 83605; 83690; 84484; 85025; 85610; 93005; 99285; Q0162; Q9967; Z7610

== ENCOUNTER 2022-04-16 04:26 | Emergency (ER) | payer MEDICAID, OTHER ==
[~2022-04-16] VITALS: Ht 170.2 cm; Wt 86.0 kg
[2022-04-16] MEDS ORDERED: MORPHINE SULFATE 4 MG/ML CPJ (NOT FOR IM USE) IV STA (05:34)
[2022-04-16] MEDS ORDERED: SODIUM CHLORIDE 0.9% 1,000 ML IV ONE (05:45)
[2022-04-16 05:58] LABS: CLARITY URINE CLEAR (CLEAR); COLOR URINE YELLOW (YELLOW); KETONES URINE NEGATIVE (NEGATIVE); LEUKOCYTE ESTERASE URINE NEGATIVE (NEGATIVE); NITRITE URINE NEGATIVE (NEGATIVE); OCCULT BLOOD URINE 2+ (NEGATIVE); PH URINE 5.5 (4.5-8.0); PROTEIN URINE NEGATIVE (NEGATIVE); SPECIFIC GRAVITY URINE 1.014 (1.005-1.030)
[2022-04-16 06:20] LABS: BASOPHILS % 0.9 % (0.0-2.0); EOSINOPHILS % 1.1 % (0.0-5.0); HEMATOCRIT. 39.5 % (36.0-48.0); LYMPHOCYTES % 20.8 % (20.0-50.0); MEAN CORPUSCULAR HEMOGLOBIN 25.1 pg (28.0-32.0); MEAN CORPUSCULAR VOLUME 76.3 fL (81.0-99.0); MEAN PLATELET VOLUME 8.9 fl (7.4-10.4); MONOCYTES % 9.9 % (2.0-8.0); NEUTROPHILS % 67.3 % (40.0-76.0); PLATELET 203 x1000/uL (130-400); RED BLOOD CELL COUNT 5.18 mill/uL (4.2-5.4); RED CELL DISTRIBUTION WIDTH 19.7 % (11.6-14.6)
[2022-04-16 06:23] LABS: CHLORIDE 111 mEq/L (98-107)
[2022-04-16 06:26] LABS: PROTHROMBIN TIME 10.3 sec (9.6-11.0)
[2022-04-16] MEDS ORDERED: IOHEXOL-300 100 ML BOTTLE ONE (07:44)
[2022-04-16] MEDS ORDERED: MORPHINE SULFATE 4 MG/ML CPJ (NOT FOR IM USE) IV NR (09:30)
[2022-04-16] MEDS ORDERED: LEVOFLOXACIN 250MG TABLET PO NR (09:45)
[2022-04-16 12:23] VITALS: BP 164/100
== END 2022-04-16 12:40 | disposition short-term general hospital (02) ==
LOC: ER 04:26
DX: K57.92 Diverticulitis of intestine, part unspecified, without perforation or abscess without bleeding (principal); J45.909 Unspecified asthma, uncomplicated; I10 Essential (primary) hypertension; Z90.49 Acquired absence of other specified parts of digestive tract; Z79.899 Other long term (current) drug therapy; Z20.822 Contact with and (suspected) exposure to COVID-19
CPT/HCPCS: 36415; 74177; 80053; 81003; 82962; 83690; 85025; 85610; 87426; 96361; 96374; 96376; 99285; C9803; J2270; J7030; Q9967